=== PATIENT | female | born 1970 | race Asian ===

== ENCOUNTER 2017-04-15 16:12 | Emergency (ER) | payer OTHER ==
[~2017-04-15] VITALS: Ht 154.9 cm; Wt 53.5 kg
[2017-04-15] MEDS ORDERED: AMOXICILLIN500 M1 PO (16:54)
[2017-04-15] MEDS ORDERED: IBUPROFEN 200200 M1 PO (16:55)
[2017-04-15] MEDS ORDERED: AZITHROMYCIN 2250 MG PO (16:55)
[2017-04-15 17:42] LABS: ABSOLUTE NEUTROPHILS 3.9 thou/uL (1.4-8.2); BASOPHILS 0.3 % (0.0-2.0); EOSINOPHILS 2.1 % (0.0-3.0); HEMATOCRIT 37.6 % (37.0-47.0); HEMOGLOBIN 11.6 gm/dL (12.0-15.0); LYMPHOCYTES 34.9 % (24.0-44.0); MCH 20.5 pg (26.0-34.0); MCV 66.2 fL (80.0-100.0); MONOCYTES 6.3 % (1.0-8.0); PLATELET COUNT 316 thou/uL (150-400); POLYS 56.4 % (36.0-66.0); RBC 5.68 mil/uL (4.20-5.00); RDW 15.1 % (10.5-14.5); WBC 6.9 thou/uL (4.0-11.0)
[2017-04-15 17:49] LABS: MANUAL DIFF NO
[2017-04-15 18:07] LABS: CALCIUM 8.9 mg/dL (8.5-10.1); CREATININE 0.8 mg/dL (0.6-1.0); POTASSIUM 3.6 mmol/L (3.5-5.1)
[2017-04-15 19:02] LABS: ANISOCYTOSIS 1+; HYPOCHROMASIA 1+; MICROCYTES 1+; OVALOCYTES FEW; POIKILOCYTOSIS SLIGHT
[2017-04-15 19:26] VITALS: BP 105/60
== END 2017-04-15 19:21 | disposition home or self-care (01) ==
LOC: ER 16:12
PROVIDERS: Emergency Medicine
DX: K02.9 Dental caries, unspecified (principal); K05.10 Chronic gingivitis, plaque induced; I10 Essential (primary) hypertension; K21.9 Gastro-esophageal reflux disease without esophagitis